=== PATIENT | male | born 2000 | race Hispanic/Latino ===

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

== ENCOUNTER → 2021-02-27 | Outpatient (CLI) | payer OTHER ==
[~2021-02-27] MED LIST: CETI-24 PO; FLUTISP INH; MUCI600T31 PO; MUCINEX; PROAAER10 INH; SINUPOW NARES; SUDO30TA2 PO
--- NOTE | 2021-02-27 13:01 | REP ---
INDICATION: LIPOMA VS SCAR TISSUE LEFT CHEST WALL. COMPARISON: None. TECHNIQUE: Real-time sonographic evaluation of left lateral flank region performed at the site of the reported palpable abnormality. FINDINGS: There is no sonographic evidence of a discrete cystic or solid mass. No fluid collection is seen. IMPRESSION: No sonographic evidence of a discrete cystic or solid mass at the site of the reported palpable abnormality. Clinical correlation and follow-up is recommended. If there is continued clinical concern for an underlying soft tissue mass, MRI with and without contrast would be recommended. <Electronically signed by Cristian Davidson > 02/27/21 1257
== END ==
LOC: M RAD 12:20
PROVIDERS: ATTEND Nurse Practitioner Family
DX: D17.1 Benign lipomatous neoplasm of skin and subcutaneous tissue of trunk (principal)